=== PATIENT | male | born 1965 | race African-American/Black ===

== ENCOUNTER 2016-12-04 16:08 | Emergency (ER) | payer OTHER ==
[~2016-12-04] VITALS: Ht 182.9 cm; Wt 78.9 kg
[~2016-12-04 16:08] MED LIST: BACITRACIN1 APPLIC TOPIC; IBUPROFEN600 MG ORAL; NKM
[2016-12-04 16:16] VITALS: BP 128/78
[2016-12-04 16:43] VITALS: BP 128/78
--- NOTE | 2016-12-04 17:40 | Emergency Room Report ---
History of Present Illness General Chief Complaint: Wound Recheck/Suture Removal Source: Patient Present Illness HPI 51-year-old male presents to ED for suture removal. Patient had sutures placed in his right thumb approximately 8 days ago. Patient is here to have sutures removed. Patient denies any complaints. Denies any pain. Denies any drainage. Denies any other associated symptom Allergies: Coded Allergies: No Known Allergies (Unverified , 11/26/16) Patient History Past Medical History: HTN Past Surgical History: none Pertinent Family History: none Social History: Denies: alcohol use, drug use, smoking Immunizations: UTD Reviewed Nursing Documentation: PMH: Agreed, PSxH: Agreed Nursing Documentation-PMH Hx Cardiac Problems: Yes Review of Systems All Other Systems: negative except mentioned in HPI Physical Exam Vital Signs Date Time Temp Pulse Resp B/P Pulse Ox O2 Delivery O2 Flow Rate FiO2 12/04/16 16:15 98.2 90 20 124/78 100 Room Air Sp02 EP Interpretation: reviewed, normal General Appearance: no apparent distress, alert, GCS 15, non-toxic Head: normocephalic Eyes: bilateral eye PERRL, bilateral eye normal inspection ENT: hearing grossly normal Neck: normal inspection Respiratory: normal inspection Cardiovascular #1: normal inspection Gastrointestinal: normal inspection Rectal: deferred Genitourinary: no CVA tenderness Musculoskeletal: back normal, gait/station normal, normal range of motion, non- tender Neurologic: alert, oriented x3, responsive, motor strength/tone normal, sensory intact, speech normal Psychiatric: normal inspection Skin: other - sutures R thumb well approximated. wound healed. no discharge. no erythema Lymphatic: normal inspection Medical Decision Making Diagnostic Impression: Primary Impression: Encounter for removal of sutures Additional Impression: Thumb laceration Qualified Codes: S61.011D - Laceration without foreign body of right thumb without damage to nail, subsequent encounter ER Course Patient presents to the emergency department today for suture removal. patient' s wound appears well-healed, and sutures are ready to be removed today. Using sterile technique the sutures were removed patient tolerated procedure well without any difficulty. Patient was given device in how to care for the wound patient is advised followup with his private care doctor in 2-3 days and return to emergency room for any worsening conditions as needed Last Vital Signs Date Time Temp Pulse Resp B/P Pulse Ox O2 Delivery O2 Flow Rate FiO2 12/04/16 16:43 98.2 89 20 128/78 100 Room Air Status: improved Disposition: HOME, SELF-CARE Condition: Stable Referrals: [facility],REFERRING (PCP) Patient Instructions: Suture Removal, Care After MATTY GONZALES M.D. Dec 04, 2016 17:40
== END 2016-12-04 16:43 | disposition home or self-care (01) ==
LOC: EMR 16:29
DX: S61.011D Laceration without foreign body of right thumb without damage to nail, subsequent encounter (principal); X58.XXXD Exposure to other specified factors, subsequent encounter; Z48.02 Encounter for removal of sutures; I10 Essential (primary) hypertension
CPT/HCPCS: 99282

== ENCOUNTER 2017-02-06 13:26 | Emergency (ER) | payer OTHER ==
[~2017-02-06] VITALS: Ht 182.9 cm; Wt 81.6 kg
--- NOTE | 2017-02-06 14:13 | Emergency Room Report ---
History of Present Illness General Chief Complaint: Eye Problems Source: Patient Present Illness HPI 51-year-old male presents to emergency Department complaining of bilateral eye redness, discharge and increased lacrimation x2 days. Patient states that his previously had bacterial conjunctivitis and he believes he has received the same. Patient denies eye pain denies nausea vomiting fevers chills changes in vision, halos around lights, or photophobia. he denies headache. he also states that he is diabetic and he is requesting a new Accu-Chek machine is not working, it is old. Denies CP, Palpitations, LOC, AMS, dizziness, Changes in Vision, Sensation, paresthesias, or a sudden severe headache. Allergies: Coded Allergies: No Known Allergies (Unverified , 11/26/16) Patient History Past Medical History: see triage record Past Surgical History: none Pertinent Family History: none Immunizations: UTD Reviewed Nursing Documentation: PMH: Agreed, PSxH: Agreed Nursing Documentation-PMH Past Medical History: No Stated History Hx Cardiac Problems: Yes Review of Systems All Other Systems: negative except mentioned in HPI Physical Exam Vital Signs Date Time Temp Pulse Resp B/P Pulse Ox O2 Delivery O2 Flow Rate FiO2 02/06/17 13:47 98.2 78 16 157/87 98 Room Air Sp02 EP Interpretation: reviewed, normal General Appearance: no apparent distress, alert, GCS 15, non-toxic Head: normocephalic, atraumatic Eyes: bilateral eye EOMI, bilateral eye PERRL, bilateral eye normal inspection , bilateral eye other - erythema, yellow/white purulent d/c noted, no crusting or evidence of infection. ENT: hearing grossly normal, normal pharynx, no angioedema, normal voice, TMs + canals normal, uvula midline, moist mucus membranes, nasal congestion Neck: full range of motion, supple/symm/no masses Respiratory: chest non-tender, lungs clear, normal breath sounds, speaking full sentences Cardiovascular #1: regular rate, rhythm, no edema Musculoskeletal: back normal, gait/station normal, normal range of motion, non- tender, no calf tenderness Neurologic: alert, oriented x3, responsive, motor strength/tone normal, sensory intact, speech normal Psychiatric: judgement/insight normal, memory normal, mood/affect normal, no suicidal/homicidal ideation Skin: normal color, no rash, warm/dry, well hydrated Lymphatic: no adenopathy Medical Decision Making PA Attestation Dr. Toure is my supervising Physician whom patient management has been discussed with. Diagnostic Impression: Primary Impression: Bacterial conjunctivitis of both eyes ER Course 51-year-old male presents to emergency Department complaining of bilateral eye redness, discharge and increased lacrimation x2 days. Patient states that his previously had bacterial conjunctivitis and he believes he has received the same. Patient denies eye pain denies nausea vomiting fevers chills changes in vision, halos around lights, or photophobia. he denies headache. he also states that he is diabetic and he is requesting a new Accu-Chek machine is not working, it is old. Ddx considered but are not limited to: corneal abrasion, acute glaucoma, globe rupture, FB, Corneal Ulcer, conjunctivitis. Iridis, orbital cellulitis,keratitis , sinusitis Vital signs: are WNL, pt. is afebrile H&PE are most consistent with: bacterial conjunctivitis, and sinusitis ORDERS: none at this time. ED INTERVENTIONS: none at this time. DISCHARGE: At this time pt. is stable for d/c to home. Will provide printed patient care instructions, and any necessary prescriptions. Care plan and follow up instructions have been discussed with the patient prior to discharge. Last Vital Signs Date Time Temp Pulse Resp B/P Pulse Ox O2 Delivery O2 Flow Rate FiO2 02/06/17 13:47 98.2 78 16 157/87 98 Room Air Disposition: HOME, SELF-CARE Condition: Stable Scripts Lancets (ACCU-CHEK) 1 Each Each 1 EACH , #1 Prov: Latoya Cormier 02/06/17 Ofloxacin (OCUFLOX) 5 Ml Drops 3 DROP OP BID, #5 ML Prov: Latoya Cormier 02/06/17 Patient Instructions: Bacterial Conjunctivitis, Oiad-ah-Hkcm Additional Instructions: Take medications as directed. Follow up with PCP in 3-5 days Return sooner to ED if new symptoms occur, or current symptoms become worse. - Please note that this Emergency Department Report was dictated using [employer] room operator technology software, occasionally this can lead to erroneous entry secondary to interpretation by the dictation equipment. Latoya Cormier Feb 06, 2017 14:13
[2017-02-06] MEDS ORDERED: ACCU-CHEK1 EAC1 MC (14:16)
[2017-02-06] MEDS ORDERED: OCUFLOX5 ML OP (14:16)
[2017-02-06 14:22] VITALS: BP 148/90
== END 2017-02-06 14:25 | disposition home or self-care (01) ==
LOC: EMR 14:09
DX: H10.9 Unspecified conjunctivitis (principal)
CPT/HCPCS: 99284

== ENCOUNTER 2018-01-06 11:07 | Emergency (ER) | payer MEDICAID, OTHER ==
[~2018-01-06] VITALS: Ht 182.9 cm; Wt 120.2 kg
[~2018-01-06 11:07] MED LIST changes: +ACCU-CHEK1 EAC1 MC; +OCUFLOX5 ML OP
[2018-01-06 12:44] LABS: APPEARANCE,URINE CLEAR; BILIRUBIN, URINE NEGATIVE (NEGATIVE); GLUCOSE, URINE (UA) NEGATIVE (NEGATIVE); KETONES,URINE 3+ (NEGATIVE); LEUKOCYTE ESTERASE ,URINE NEGATIVE (NEGATIVE); NITRITE,URINE NEGATIVE (NEGATIVE); PH,URINE 6 (4.5-8.0); PROTEIN,URINE NEGATIVE (NEGATIVE); UROBILINOGEN,URINE 1 MG/DL (0.0-1.0)
[2018-01-06 12:45] LABS: COLOR,URINE YELLOW
[2018-01-06 12:45] LABS: BASOPHILS % (AUTO) 0.7 % (0.0-2.0); EOSINOPHILS % (AUTO) 0.1 % (0.0-3.0); HEMATOCRIT 48.3 % (42.0-52.0); HEMOGLOBIN 15.8 G/DL (14.2-18.0); LYMPHOCYTES % (AUTO) 18.5 % (20.0-45.0); MEAN CORPUSCULAR VOLUME 85 FL (80-99); MONOCYTES % (AUTO) 7.1 % (1.0-10.0); NEUTROPHILS % (AUTO) 73.5 % (45.0-75.0); PLATELET COUNT 193 K/UL (150-450); RED BLOOD COUNT 5.65 M/UL (4.70-6.10); RED CELL DISTRIBUTION WIDTH 11.8 % (11.6-14.8)
[2018-01-06 13:02] LABS: ANION GAP 12 mmol/L (5-15); BLOOD UREA NITROGEN 10 mg/dL (7-18); CARBON DIOXIDE 27 MMOL/L (21-32); CHLORIDE 97 MMOL/L (98-107); POTASSIUM 4.4 MMOL/L (3.5-5.1); SODIUM 136 MMOL/L (136-145)
[2018-01-06 13:06] LABS: ALANINE AMINOTRANSFERASE 30 U/L (12-78); ALBUMIN 3.9 G/DL (3.4-5.0); ALKALINE PHOSPHATASE 81 U/L (46-116); ASPARTATE AMINO TRANSFERASE 29 U/L (15-37); BILIRUBIN,TOTAL 0.6 MG/DL (0.2-1.0); CREATINE KINASE 549 U/L (26-308)
--- NOTE | 2018-01-06 14:38 | Emergency Room Report ---
History of Present Illness General Chief Complaint: Upper Respiratory Illness Source: Patient Present Illness HPI This patient complains of 4 days of influenza-like symptoms. He describes bodyaches, congestion, subjective fever and chills. He also has had some mild cough. He denies chest pain or shortness of breath. He denies abdominal pain. He denies nausea or vomiting. He denies headache or neck pain. He denies blurry vision. He has no other complaints. Allergies: Coded Allergies: PENICILLINS (Verified Allergy, Unknown, 01/06/18) Patient History Past Medical History: none, see triage record Social History: Denies: smoking, alcohol use, drug use Reviewed Nursing Documentation: PMH: Agreed, PSxH: Agreed Nursing Documentation-PMH Past Medical History: No Stated History Hx Cardiac Problems: Yes Review of Systems All Other Systems: negative except mentioned in HPI Physical Exam Vital Signs Date Time Temp Pulse Resp B/P (MAP) Pulse Ox O2 Delivery O2 Flow Rate FiO2 01/06/18 11:09 99.0 93 6 122/67 99 Room Air Sp02 EP Interpretation: reviewed, normal General Appearance: no apparent distress, alert, GCS 15, non-toxic Head: normocephalic, atraumatic Eyes: bilateral eye normal inspection, bilateral eye PERRL ENT: hearing grossly normal, normal pharynx, no angioedema, normal voice Neck: full range of motion, supple/symm/no masses Respiratory: chest non-tender, lungs clear, normal breath sounds, speaking full sentences Cardiovascular #1: regular rate, rhythm, no edema Gastrointestinal: normal bowel sounds, non tender, soft, non-distended, no guarding, no rebound Rectal: deferred Musculoskeletal: back normal, gait/station normal, normal range of motion, non- tender Neurologic: alert, oriented x3, responsive, motor strength/tone normal, sensory intact, speech normal Psychiatric: judgement/insight normal, memory normal, mood/affect normal, no suicidal/homicidal ideation Skin: normal color, no rash, warm/dry, well hydrated Medical Decision Making Diagnostic Impression: Primary Impression: Influenza B Additional Impression: Diabetes ER Course This patient has a clinical presentation consistent with influenza. Patient overall is nontoxic with no evidence of pneumonia on chest x-ray. There does not appear to be any emergency complications. I do not feel this patient needs admission at this time. The patient stable vital signs. I will give the patient a course of Tamiflu. The patient is noted to have a blood sugar of 280. When I discussed this with the patient, he admits that he has had elevated blood sugar in the past and he uses diet to control his blood sugar. He has refused previously to go on medications. Given the blood sugar of 280, I felt that I should start this patient on metformin. The patient agreed to start the metformin. I educated the patient on the dangers of uncontrolled diabetes and elevated blood sugar. Patient given close return precautions and followup instructions. Laboratory Tests Test 01/06/18 11:45 01/06/18 12:20 White Blood Count 11.0 K/UL (4.8-10.8) H Red Blood Count 5.65 M/UL (4.70-6.10) Hemoglobin 15.8 G/DL (14.2-18.0) Hematocrit 48.3 % (42.0-52.0) Mean Corpuscular Volume 85 FL (80-99) Mean Corpuscular Hemoglobin 27.9 PG (27.0-31.0) Mean Corpuscular Hemoglobin Concent 32.7 G/DL (32.0-36.0) Red Cell Distribution Width 11.8 % (11.6-14.8) Platelet Count 193 K/UL (150-450) Mean Platelet Volume 9.1 FL (6.5-10.1) Neutrophils (%) (Auto) 73.5 % (45.0-75.0) Lymphocytes (%) (Auto) 18.5 % (20.0-45.0) L Monocytes (%) (Auto) 7.1 % (1.0-10.0) Eosinophils (%) (Auto) 0.1 % (0.0-3.0) Basophils (%) (Auto) 0.7 % (0.0-2.0) Sodium Level 136 MMOL/L (136-145) Potassium Level 4.4 MMOL/L (3.5-5.1) Chloride Level 97 MMOL/L (98-107) L Carbon Dioxide Level 27 MMOL/L (21-32) Anion Gap 12 mmol/L (5-15) Blood Urea Nitrogen 10 mg/dL (7-18) Creatinine 1.0 MG/DL (0.55-1.30) Estimate Glomerular Filtration Rate > 60 mL/min (>60) Glucose Level 280 MG/DL (74-106) H Calcium Level 9.0 MG/DL (8.5-10.1) Total Bilirubin 0.6 MG/DL (0.2-1.0) Aspartate Amino Transferase (AST) 29 U/L (15-37) Alanine Aminotransferase (ALT) 30 U/L (12-78) Alkaline Phosphatase 81 U/L (46-116) Total Creatine Kinase 549 U/L (26-308) H Total Protein 7.7 G/DL (6.4-8.2) Albumin 3.9 G/DL (3.4-5.0) Globulin 3.8 g/dL Albumin/Globulin Ratio 1.0 (1.0-2.7) Urine Color Yellow Urine Appearance Clear Urine pH 6 (4.5-8.0) Urine Specific Gilbert 1.010 (1.005-1.035) Urine Protein Negative (NEGATIVE) Urine Glucose (UA) Negative (NEGATIVE) Urine Ketones 3+ (NEGATIVE) H Urine Occult Blood Negative (NEGATIVE) Urine Nitrite Negative (NEGATIVE) Urine Bilirubin Negative (NEGATIVE) Urine Urobilinogen 1 MG/DL (0.0-1.0) H Urine Leukocyte Esterase Negative (NEGATIVE) Microbiology Date/Time Source Procedure Growth Status 01/06/18 11:45 Nasal Nares Influenza Types A,B Antigen (MARCY) - Final Complete Chest X-Ray Diagnostic Results Chest X-Ray Diagnostic Results : Chest X-Ray Ordered: Yes # of Views/Limited/Complete: 1 View Indication: Other - cough EP Interpretation: Yes Interpretation: no consolidation, no effusion, no pneumothorax, no acute cardiopulmonary disease Impression: No acute disease Electronically Signed by: Gail Last Vital Signs Date Time Temp Pulse Resp B/P (MAP) Pulse Ox O2 Delivery O2 Flow Rate FiO2 01/06/18 11:17 20 Room Air 01/06/18 11:09 99.0 93 122/67 99 Status: improved Disposition: HOME, SELF-CARE Condition: Improved Referrals: NOT CHOSEN [facility]/,REFERRING (PCP) SITA GUTIERREZ D.O. Jan 06, 2018 14:38
[2018-01-06] MEDS ORDERED: TAMIFLU75 MG ORAL (14:41)
[2018-01-06] MEDS ORDERED: METFORMIN HCL500 M1 ORAL (14:41)
--- NOTE | 2018-01-06 14:59 | Diagnostic Imaging Report ---
Indication: Reason For Exam: COUGH Technique: One view of the chest Comparison: none Findings: Lungs and pleural spaces are clear. Heart size is normal Impression: No acute process
[2018-01-06 15:05] VITALS: BP 122/67
--- NOTE | 2018-01-07 17:19 | Cardiology Report ---
APPROVED REPORT EKG Measurement Heart [id number] Normal sinus rhythm Normal ECG
== END 2018-01-06 15:12 | disposition home or self-care (01) ==
LOC: EMR 11:25
DX: R50.9 Fever, unspecified (principal); J10.1 Influenza due to other identified influenza virus with other respiratory manifestations; E11.9 Type 2 diabetes mellitus without complications; Z88.0 Allergy status to penicillin
CPT/HCPCS: 36415; 71045; 80053; 81003; 82550; 85025; 86710; 87040; 93005; 96360; 99284